=== PATIENT | female | born 1985 | race Caucasian/White ===

== ENCOUNTER → 2018-08-28 | Outpatient (CLI) | payer OTHER ==
[~2018-08-28] MED LIST: CEPH500 PO; IBUP800 PO; Nuvaring Vagin1 EACH; ONDA4ODT MM; OXYACE5T PO; PRENATAL FORMU1 EAC1 PO; [UNRECOGNIZED DRUG - OTHER] PO
== END ==
LOC: LAB UCHC 15:13 → LAB SHORT 15:13
DX: N89.8 Other specified noninflammatory disorders of vagina (principal)
CPT/HCPCS: 87070; 87205

== ENCOUNTER 2018-12-29 10:52 | Day surgery (SDC) | payer OTHER ==
[~2018-12-29] VITALS: Ht 162.6 cm; Wt 68.8 kg
[~2018-12-29 10:52] MED LIST changes: +Nuvaring Vagin1 EACH VAG
--- NOTE | 2018-12-29 13:00 | NUR ---
12/29/[address] IS NOW THE ANESTHESIA PROVIDER AND SAW THE PATIENT AT 1300
--- NOTE | 2018-12-29 15:32 | NUR ---
12/29/18 1531 Katherine Riddle ASSUMED CARE OF PATIENT FROM ROGER BUI. PATIENT C/O NAUSEA. WILL MEDICATE PER ORDERS. VSS. NO OTHER COMPLAINTS AT THIS TIME. IN ROOM.
== END 2018-12-29 16:26 | disposition home or self-care (01) ==
LOC: ORSCSDS 10:52
PROVIDERS: Obstetrics & Gynecology
PROC: 0DNW4ZZ Release Peritoneum, Percutaneous Endoscopic Approach (ICD-10-PCS; principal; 2018-12-29 12:00)
DX: N94.6 Dysmenorrhea, unspecified (principal); N80.3 Endometriosis of pelvic peritoneum; N94.10 Unspecified dyspareunia; R10.2 Pelvic and perineal pain
CPT/HCPCS: J0171; J0690; J1100; J1885; J2250; J2405; J2704; J2765; J3010; J7120

== ENCOUNTER → 2019-07-11 | Outpatient (CLI) | payer OTHER ==
[2019-07-12 15:11] LABS: HPV 16 Negative (Negative); HPV 18 Negative (Negative); HPV OTHER HR TYPES Negative (Negative)
== END ==
LOC: LAB SHORT 12:32 → LAB 12:32
PROVIDERS: Registered Nurse Community Health
DX: Z30.44 Encounter for surveillance of vaginal ring hormonal contraceptive device (principal)
CPT/HCPCS: 87624; G0123

== ENCOUNTER → 2019-07-26 | Outpatient (CLI) | payer OTHER | END | disposition home or self-care (01) | LOC: LAB EV 09:54 → LAB SHORT 09:54 | DX: J02.9 Acute pharyngitis, unspecified (principal) | CPT/HCPCS: 87081 ==

== ENCOUNTER → 2020-04-02 | Outpatient (CLI) | payer OTHER | END | disposition home or self-care (01) | LOC: LAB SHORT 13:08 → LAB EV 13:08 | DX: J03.90 Acute tonsillitis, unspecified (principal) | CPT/HCPCS: 87081; 87147 ==

== ENCOUNTER → 2021-09-27 | Outpatient (CLI) | payer OTHER | LOC: LAB SHORT 11:17 | DX: J02.9 Acute pharyngitis, unspecified (principal) ==

== ENCOUNTER → 2022-09-08 | Outpatient (CLI) | payer OTHER ==
[2022-09-09 15:07] LABS: HPV 16 Negative (Negative); HPV 18 Negative (Negative); HPV OTHER HR TYPES Negative (Negative)
== END | disposition home or self-care (01) ==
LOC: LAB SHORT 11:20 → LAB 11:20
PROVIDERS: Registered Nurse Community Health
DX: Z12.4 Encounter for screening for malignant neoplasm of cervix (principal)
CPT/HCPCS: 87624; G0145